=== PATIENT | female | born 1970 | race Caucasian/White ===

== ENCOUNTER 2019-11-13 07:43 | Emergency (ER) | payer BC ==
[~2019-11-13] VITALS: Ht 160 cm; Wt 79.8 kg
[~2019-11-13 07:43] MED LIST: ALPR.5T PO; AMOX1TAB12 PO; CTLP20T PO; DILT240C PO; HYDR-3583 PO; LATA2.5D5 OP; LATA2.5D5 OU; OMEP40CA36 PO; ONDA8TAB13 PO; ONDAN4ODT PO; SCOP1PAT11 TD; SCP1.5TD TD; TMZP15C PO; TRM50T PO
--- NOTE | 2019-11-13 08:08 | ED Cardiac General ---
History of Present Illness General Chief Complaint: Cardiac/General Problems Stated Complaint: ELEVATED HR Nursing Triage Note: Patient presents to the ED with c/o of high heart rate. She states that was unable to sleep last night due to feeling like her heart was racing. She reports that she has a history of SVT but hasn't had any episodes since 2011 and no longer takes medications for it. Source: patient Exam Limitations: no limitations History of Present Illness Date Seen by Provider: Nov 13, 2019 Time Seen by Provider: 08:00 Initial Comments 49-year-old female presents with concerns for high heart rate. Patient reports that she felt like her heart was racing all night long. Patient does have a previous history of SVT and this was wearing her. She reports her last symptom was in 2011 and since then she has not had any further symptoms. 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 She did have a negative heart catheter in 2014. Patient is unsure she's is having some anxiety. She reports that that the rapid heart rate seemed to be more present at night than during the day. She denies any fevers chills nausea vomiting shortness of breath cough or other systemic complaints. Allergies and Home Medications Allergies Uncoded Allergies: STEROID (Allergy, 01/30/12) Home Medications Amoxicillin/Potassium Clav 1 Each Tablet, 1 TAB PO BID, (Reported) Latanoprost 2.5 Ml Drops, 1 DROP OU DAILY, (Reported) Ondansetron 8 Mg Tab.rapdis, 8 MG PO Q6H PRN for NAUSEA Prescribed by: SUNSHINE MULTANI on 10/05/1540 Scopolamine 1 Each Patch.td72, 1 EACH TD UD PRN for NAUSEA 1 patch q72 hours prn nausea Prescribed by: SUNSHINE MULTANI on 10/05/1540 Tramadol HCl 50 Mg Tablet, 50-100 MG PO Q4H PRN for PAIN Prescribed by: SUNSHINE MULTANI on 10/05/1540 Patient Home Medication List Home Medication List Reviewed: Yes Review of Systems Review of Systems Constitutional: No chills, No dizziness, No fever, No malaise, No weakness EENTM: No Mouth Swelling Respiratory: Denies Cough, Denies SOA With Exertion, Denies SOA at Rest Cardiovascular: Denies Chest Pain, Denies Lightheadedness; Palpitations Gastrointestinal: Denies Abdominal Pain, Denies Diarrhea, Denies Nausea, Denies Vomiting Genitourinary: Denies Burning Musculoskeletal: no symptoms reported Skin: no symptoms reported Psychiatric/Neurological: Anxiety Endocrine: No Symptoms Reported Hematologic/Lymphatic: No Symptoms Reported Past Mcecufw-Ndsqvm-Waqnwq Hx Past Med/Social Hx: Reviewed Nursing Past Med/Soc Hx Patient Social History Alcohol Use: Occasionally Uses Recreational Drug Use: No Smoking Status: Never a Smoker 2nd Hand Smoke Exposure: No Recent Foreign Travel: No Contact w/Someone Who Travel: No Recent Infectious Disease Expo: No Recent Hopitalizations: No Physical Abuse: No Sexual Abuse: No Mistreated: No Fear: No Immunizations Up To Date Date of Influenza Vaccine: Dec 27, 2011 Seasonal Allergies Seasonal Allergies: No Past Medical History Surgeries: Yes (WISDOM TEETH ) Gallbladder Respiratory: No Cardiac: Yes (SVT) Hypertension Neurological: No Reproductive Disorders: No Genitourinary: No Gastrointestinal: No Musculoskeletal: No Endocrine: No HEENT: Yes Glaucoma Cancer: No Psychosocial: Yes Anxiety Integumentary: No Blood Disorders: No Adverse Reaction/Blood Tranf: No Family Medical History No Pertinent Family Hx Physical Exam Vital Signs Vital Signs - First Documented 11/13/19 08:01 Temp 37.2 Pulse 111 Resp 18 B/P (MAP) 138/90 (106) Pulse Ox 98 O2 Delivery Room Air Capillary Refill : Less Than 3 Seconds Height, Weight, BMI Height: 5'3.00" Weight: 170lbs. oz. 77.692255xv; 31.00 BMI Method:Stated General Appearance: No Apparent Distress, WD/WN Neck: Non Tender Respiratory: Chest Non Tender, Lungs Clear, Normal Breath Sounds Cardiovascular: No Edema, Normal Peripheral Pulses; No Extra Beats; Tachycardia Gastrointestinal: Non Tender, Soft Extremity: Normal Capillary Refill, Normal Inspection, Normal Range of Motion Neurologic/Psychiatric: Alert, Oriented x3, Normal Mood/Affect, department director II-XII Norm as Tested Skin: Normal Color, Warm/Dry Progress/Results/Core Measures Results/Orders Lab Results Laboratory Tests Test 11/13/19 08:00 11/13/19 08:20 Range/Units White Blood Count 9.7 4.3-11.0 10^3/uL Red Blood Count 4.68 4.35-5.85 10^6/uL Hemoglobin 13.4 11.5-16.0 G/DL Hematocrit 39 35-52 % Mean Corpuscular Volume 83 80-99 FL Mean Corpuscular Hemoglobin 29 25-34 PG Mean Corpuscular Hemoglobin Concent 35 32-36 G/DL Red Cell Distribution Width 12.4 10.0-14.5 % Platelet Count 304 130-400 10^3/uL Mean Platelet Volume 10.9 H 7.4-10.4 FL Neutrophils (%) (Auto) 60 42-75 % Lymphocytes (%) (Auto) 33 12-44 % Monocytes (%) (Auto) 6 0-12 % Eosinophils (%) (Auto) 2 0-10 % Basophils (%) (Auto) 0 0-10 % Neutrophils # (Auto) 5.8 1.8-7.8 X 10^3 Lymphocytes # (Auto) 3.2 1.0-4.0 X 10^3 Monocytes # (Auto) 0.5 0.0-1.0 X 10^3 Eosinophils # (Auto) 0.2 0.0-0.3 10^3/uL Basophils # (Auto) 0.0 0.0-0.1 10^3/uL Sodium Level 139 135-145 MMOL/L Potassium Level 3.9 3.6-5.0 MMOL/L Chloride Level 103 98-107 MMOL/L Carbon Dioxide Level 22 21-32 MMOL/L Anion Gap 14 5-14 MMOL/L Blood Urea Nitrogen 13 7-18 MG/DL Creatinine 0.74 0.60-1.30 MG/DL Estimat Glomerular Filtration Rate > 60 BUN/Creatinine Ratio 18 Glucose Level 102 70-105 MG/DL Calcium Level 9.6 8.5-10.1 MG/DL Corrected Calcium 9.2 8.5-10.1 MG/DL Magnesium Level 2.0 1.6-2.4 MG/DL Total Bilirubin 0.4 0.1-1.0 MG/DL Aspartate Amino Transf (AST/SGOT) 16 5-34 U/L Alanine Aminotransferase (ALT/SGPT) 22 0-55 U/L Alkaline Phosphatase 50 40-136 U/L Troponin I < 0.30 <0.30 NG/ML Total Protein 7.4 6.4-8.2 GM/DL Albumin 4.5 3.2-4.5 GM/DL Urine Color PALE YELLOW Urine Clarity CLEAR Urine pH 6.0 5-9 Urine Specific [place] <=1.005 1.016-1.022 Urine Protein NEGATIVE NEGATIVE Urine Glucose (UA) NEGATIVE NEGATIVE Urine Ketones 1+ H NEGATIVE Urine Nitrite NEGATIVE NEGATIVE Urine Bilirubin NEGATIVE NEGATIVE Urine Urobilinogen 0.2 < = 1.0 MG/DL Urine Leukocyte Esterase NEGATIVE NEGATIVE Urine RBC (Auto) NEGATIVE NEGATIVE Urine RBC NONE /HPF Urine WBC RARE /HPF Urine Squamous Epithelial Cells RARE /HPF Urine Crystals NONE /LPF Urine Bacteria NEGATIVE /HPF Urine Casts NONE /LPF Urine Mucus NEGATIVE /LPF Urine Culture Indicated NO My Orders Orders - GERDA BRIDGES DO Comprehensive Metabolic Panel (11/13/19 08:08) Magnesium (11/13/19 08:08) Thyroid Analyzer (11/13/19 08:08) Ua Culture If Indicated (11/13/19 08:08) Troponin I Fs (11/13/19 08:08) Chest Pa/Lat (2 View) (11/13/19 08:08) Ns Iv 1000 Ml (Sodium Chloride 0.9%) (11/13/19 08:18) Cbc With Automated Diff (11/13/19 08:58) Vital Signs/I&O 11/13/19 08:01 Temp 37.2 Pulse 111 Resp 18 B/P (MAP) 138/90 (106) Pulse Ox 98 O2 Delivery Room Air Blood Pressure Mean: 106 Progress Progress Note : Time: 09:41 Progress Note Patient's heart rate improved throughout her stay in to mid 80s. Discussed with her the need to follow-up with her primary care provider for evaluation of possible sleep apnea versus early menopause her transitional menopause or other etiology. Patient has no acute findings. She is stable and will be discharged home Initial ECG Impression Date: Nov 13, 2019 Initial ECG Impression Time: 07:53 Initial ECG Rate: 117 Initial ECG Rhythm: S.Tach Initial ECG Intervals: Normal Comment sinus tachycardia Diagnostic Imaging Diagonstic Imaging: Xray Plain Films/CT/US/NM/MRI: chest Comments NAME: ANA PELAEZ [facility] REC#: [id number] PT STATUS: REG ER : 1970 PHYSICIAN: GERDA BRIDGES DO ADMIT DATE: 11/13/19/ER FS Draft Date of Exam:11/13/19 CHEST PA/LAT (2 VIEW) EXAMINATION: Chest, PA and lateral views. INDICATION: Tachycardia. History of SVT. COMPARISON: 02/03/2012 FINDINGS: The lungs are clear and the pulmonary vasculature is normal. No pneumothorax or pleural effusion. Heart size and mediastinal contours are normal and unchanged. No acute osseous abnormality is identified. Surgical clips are demonstrated in the right upper abdominal quadrant. IMPRESSION: No radiographic evidence of acute chest disease. No significant change from prior. Reviewed: Reviewed by Me, Reviewed/Discussed Departure Impression Primary Impression: Tachycardia, paroxysmal Disposition: 01 HOME, SELF-CARE Condition: Stable Departure-Patient Inst. Referrals: NO,LOCAL PHYSICIAN (PCP/Family) Primary Care Physician Patient Instructions: Tachycardia (DC) Add. Discharge Instructions: Follow-up with your primary care provider for further evaluation and outpatient test All discharge instructions reviewed with patient and/or family. Voiced understanding. GERDA BRIDGES DO Nov 13, 2019 08:08
[2019-11-13] MEDS ORDERED: NS IV 1000 ML 1,000 ML IV STA (08:18)
--- NOTE | 2019-11-13 08:30 | Diagnostic Imaging Report ---
EXAMINATION: Chest, PA and lateral views. INDICATION: Tachycardia. History of SVT. COMPARISON: 02/03/2012 FINDINGS: The lungs are clear and the pulmonary vasculature is normal. No pneumothorax or pleural effusion. Heart size and mediastinal contours are normal and unchanged. No acute osseous abnormality is identified. Surgical clips are demonstrated in the right upper abdominal quadrant. IMPRESSION: No radiographic evidence of acute chest disease. No significant change from prior. Dictated by: Dictated on workstation # [id number]
[2019-11-13 08:39] LABS: BACTERIA,URINE NEGATIVE /HPF; BILIRUBIN,URINE NEGATIVE (NEGATIVE); CLARITY,URINE CLEAR; COLOR,URINE PALE YELLOW; GLUCOSE, URINE (UA) NEGATIVE (NEGATIVE); KETONES,URINE 1+ (NEGATIVE); LEUKOCYTE ESTERASE ,URINE NEGATIVE (NEGATIVE); NITRITE,URINE NEGATIVE (NEGATIVE); PROTEIN,URINE NEGATIVE (NEGATIVE); SQUAMOUS EPITHELIAL CELL,UR RARE /HPF; WBC,URINE RARE /HPF
[2019-11-13 08:41] LABS: ALANINE AMINOTRANSFERASE 22 U/L (0-55); ALBUMIN 4.5 GM/DL (3.2-4.5); ALKALINE PHOSPHATASE 50 U/L (40-136); BILIRUBIN,TOTAL 0.4 MG/DL (0.1-1.0); BUN/CREATININE RATIO 18; CALCIUM 9.6 MG/DL (8.5-10.1); CARBON DIOXIDE 22 MMOL/L (21-32); CHLORIDE 103 MMOL/L (98-107); CREATININE SERUM 0.74 MG/DL (0.60-1.30); GFR ESTIMATED > 60; GLUCOSE 102 MG/DL (70-105); POTASSIUM 3.9 MMOL/L (3.6-5.0); SODIUM 139 MMOL/L (135-145); TOTAL PROTEIN 7.4 GM/DL (6.4-8.2)
[2019-11-13 09:16] LABS: HEMATOCRIT 39 % (35-52); HEMOGLOBIN 13.4 G/DL (11.5-16.0); MEAN CORPUSCULAR HEMOGLOBIN 29 PG (25-34); MEAN CORPUSCULAR HGB CONC 35 G/DL (32-36); MEAN CORPUSCULAR VOLUME 83 FL (80-99); MEAN PLATELET VOLUME 10.9 FL (7.4-10.4); PLATELET COUNT 304 10^3/uL (130-400); RED CELL DISTRIBUTION WIDTH 12.4 % (10.0-14.5); WHITE BLOOD COUNT 9.7 10^3/uL (4.3-11.0)
[2019-11-13 09:17] LABS: BASOPHILS % (AUTO) 0 % (0-10); EOSINOPHILS # (AUTO) 0.2 10^3/uL (0.0-0.3); EOSINOPHILS % (AUTO) 2 % (0-10); LYMPHOCYTES # (AUTO) 3.2 X 10^3 (1.0-4.0); LYMPHOCYTES % (AUTO) 33 % (12-44); MONOCYTES # (AUTO) 0.5 X 10^3 (0.0-1.0); MONOCYTES % (AUTO) 6 % (0-12); NEUTROPHILS # (AUTO) 5.8 X 10^3 (1.8-7.8); NEUTROPHILS % (AUTO) 60 % (42-75)
[2019-11-13 09:45] VITALS: BP 133/82
[2019-11-13 15:29] LABS: TSH (THYROID ANALYZER) 2.84 UIU/ML (0.35-4.94)
== END 2019-11-13 09:45 | disposition home or self-care (01) ==
LOC: EDUNIT# 07:43 → ER FS 07:45
DX: I47.9 Paroxysmal tachycardia, unspecified (principal); Z88.8 Allergy status to other drugs, medicaments and biological substances
CPT/HCPCS: 36415; 71046; 80053; 81000; 83735; 84443; 84484; 85025; 93005

== ENCOUNTER → 2020-05-16 | Outpatient (CLI) | payer SELFPAY ==
--- NOTE | 2020-05-16 16:03 | Diagnostic Imaging Report ---
INDICATION: Family history of cardiac disease. History of SVT. EXAMINATION: Noncontrasted limited chest CT performed for the purpose of calcium scoring. All CT scans use one or more of the following dose optimizing techniques: automated exposure control, MA and/or KvP adjustment based on patient size and exam type or iterative reconstruction. FINDINGS: No radiopaque atherosclerotic disease involving the left main. The LAD or circumflex is seen. Some vague hyperdensity along the expected course of the right coronary artery. Some of this is not believed artifactual with the measured score of 71. Total score of 71. The aorta is nonaneurysmal and shows no detectable calcification. The visualized lungs clear. No mass or thoracic adenopathy. No demonstrated effusion or pneumothorax. No appreciable chest wall lesion. IMPRESSION: No aortic or left-sided coronary arterial calcified plaque. There is some measured hyperdensity near the right coronary artery with a score of 71; however, this is believed to be exaggerated and a significant degree of calcified plaque is not felt present at this exam. Dictated by: Dictated on workstation # [id number]
== END ==
LOC: RAD FS 13:55
PROVIDERS: ATTEND Nurse Practitioner Family
DX: E78.2 Mixed hyperlipidemia (principal); Z82.49 Family history of ischemic heart disease and other diseases of the circulatory system; Z86.79 Personal history of other diseases of the circulatory system
CPT/HCPCS: 75571

== ENCOUNTER 2022-04-23 13:33 | Emergency (ER) | payer BC, OTHER ==
[~2022-04-23] VITALS: Ht 160 cm; Wt 78.0 kg
[~2022-04-23 13:33] MED LIST changes: +SCOP1PAT10 TD; -SCOP1PAT11 TD
--- NOTE | 2022-04-23 13:43 | ED Cardiac General ---
History of Present Illness General Chief Complaint: Cardiac/General Problems Stated Complaint: ARRHYTHMIA History of Present Illness Date Seen by Provider: Apr 23, 2022 Time Seen by Provider: 13:41 Initial Comments 51-year-old female presents with what she describes as palpitations or maybe having like a skipped beat or abnormal beat. She reports has been going on and off for a couple days but seemed like it was little bit worse today. Patient reports that she has had a history of SVT but has not had any issues with it in a while. She did call her aco coordinator and they are sending her a Holter monitor to wear for the next 2 weeks. She does not have any chest pain, shortness of breath fevers chills nausea or vomiting. She does report that she is perimenopausal and is not sure if that is part of what is going on. No reports of fevers chills or any other systemic complaints. Allergies and Home Medications Allergies Uncoded Allergies: STEROID (Allergy, 01/30/12) Patient Home Medication List Home Medication List Reviewed: Yes Amoxicillin/Potassium Clav (Amox Tr-K Clv 875-125 mg Tab) 1 Each Tablet, 1 TAB PO BID, (Reported) Entered as Reported by: CRUZITO REID on 10/04/152227 Latanoprost (Latanoprost) 2.5 Ml Drops, 1 DROP OU DAILY, (Reported) Entered as Reported by: CRUZITO REID on 10/04/152227 Ondansetron (Ondansetron Odt) 8 Mg Tab.rapdis, 8 MG PO Q6H PRN for NAUSEA Prescribed by: SUNSHINE MULTANI on 10/05/1540 Scopolamine (Transderm-Scop) 1 Each Patch.td72, 1 EACH TD UD PRN for NAUSEA Prescribed by: SUNSHINE MULTANI on 10/05/1540 Tramadol HCl (Tramadol HCl) 50 Mg Tablet, 50-100 MG PO Q4H PRN for PAIN Prescribed by: SUNSHINE MULTANI on 10/05/1540 Review of Systems Review of Systems Constitutional: No chills, No fever EENTM: No Symptoms Reported Respiratory: No Symptoms Reported Cardiovascular: Denies Chest Pain, Denies Lightheadedness; Palpitations Gastrointestinal: No Symptoms Reported Genitourinary: No Symptoms Reported Musculoskeletal: no symptoms reported Skin: no symptoms reported Psychiatric/Neurological: No Symptoms Reported Endocrine: No Symptoms Reported Past Yizmwjm-Szaymk-Qiatku Hx Seasonal Allergies Seasonal Allergies: No Past Medical History Surgeries: Yes (WISDOM TEETH ) Gallbladder Respiratory: No Cardiac: Yes (SVT) Hypertension Neurological: No Reproductive Disorders: No Genitourinary: No Gastrointestinal: No Musculoskeletal: No Endocrine: No HEENT: Yes Glaucoma Cancer: No Psychosocial: Yes Anxiety Integumentary: No Blood Disorders: No Adverse Reaction/Blood Tranf: No Family Medical History No Pertinent Family Hx Physical Exam Vital Signs Vital Signs - First Documented 04/23/22 14:04 Temp 36.5 Pulse 82 Resp 18 B/P (MAP) 138/102 (114) Pulse Ox 100 O2 Delivery Room Air Capillary Refill : Height, Weight, BMI Height: 5'3.00" Weight: 170lbs. oz. 77.819283ak; 31.00 BMI Method:Stated General Appearance: No Apparent Distress, WD/WN HEENT: Normal ENT Inspection, Pharynx Normal, Moist Mucous Membranes Respiratory: Chest Non Tender, Lungs Clear Cardiovascular: Regular Rate, Rhythm, No Edema, Normal Peripheral Pulses Gastrointestinal: Non Tender, Soft Extremity: Normal Capillary Refill, Normal Inspection, Normal Range of Motion Neurologic/Psychiatric: Alert, Oriented x3, No Motor/Sensory Deficits, Normal Mood/Affect Skin: Normal Color, Warm/Dry Progress/Results/Core Measures Results/Orders Lab Results Laboratory Tests Test 04/23/22 13:50 Range/Units White Blood Count 7.9 4.3-11.0 10^3/uL Red Blood Count 4.62 3.80-5.11 10^6/uL Hemoglobin 13.1 11.5-16.0 g/dL Hematocrit 38 35-52 % Mean Corpuscular Volume 82 80-99 fL Mean Corpuscular Hemoglobin 28 25-34 pg Mean Corpuscular Hemoglobin Concent 35 32-36 g/dL Red Cell Distribution Width 12.5 10.0-14.5 % Platelet Count 303 130-400 10^3/uL Mean Platelet Volume 10.2 9.0-12.2 fL Immature Granulocyte % (Auto) 0 % Neutrophils (%) (Auto) 67 42-75 % Lymphocytes (%) (Auto) 26 12-44 % Monocytes (%) (Auto) 6 0-12 % Eosinophils (%) (Auto) 2 0-10 % Basophils (%) (Auto) 1 0-10 % Neutrophils # (Auto) 5.2 1.8-7.8 10^3/uL Lymphocytes # (Auto) 2.0 1.0-4.0 10^3/uL Monocytes # (Auto) 0.4 0.0-1.0 10^3/uL Eosinophils # (Auto) 0.1 0.0-0.3 10^3/uL Basophils # (Auto) 0.0 0.0-0.1 10^3/uL Immature Granulocyte # (Auto) 0.0 0.0-0.1 10^3/uL Sodium Level 139 135-145 MMOL/L Potassium Level 4.1 3.6-5.0 MMOL/L Chloride Level 105 98-107 MMOL/L Carbon Dioxide Level 24 21-32 MMOL/L Anion Gap 10 5-14 MMOL/L Blood Urea Nitrogen 8 7-18 MG/DL Creatinine 0.66 0.60-1.30 MG/DL Estimat Glomerular Filtration Rate 107 BUN/Creatinine Ratio 12 Glucose Level 132 H 70-105 MG/DL Calcium Level 9.9 8.5-10.1 MG/DL Corrected Calcium 8.5-10.1 MG/DL Magnesium Level 1.8 1.6-2.4 MG/DL Total Bilirubin 0.4 0.1-1.0 MG/DL Aspartate Amino Transf (AST/SGOT) 16 5-34 U/L Alanine Aminotransferase (ALT/SGPT) 22 0-55 U/L Alkaline Phosphatase 57 40-136 U/L Troponin I < 0.30 <0.30 NG/ML Total Protein 7.6 6.4-8.2 GM/DL Albumin 4.6 H 3.2-4.5 GM/DL My Orders Orders - BRIDGES,GERDA L DO Cbc With Automated Diff (04/23/22 13:39) Comprehensive Metabolic Panel (04/23/22 13:39) Magnesium (04/23/22 13:39) Troponin I Fs (04/23/22 13:39) Ekg Tracing (04/23/22 13:39) Monitor-Rhythm Ecg Trace Only (04/23/22 13:39) Chest Pa/Lat (2 View) (04/23/22 13:43) Vital Signs/I&O 04/23/22 14:04 Temp 36.5 Pulse 82 Resp 18 B/P (MAP) 138/102 (114) Pulse Ox 100 O2 Delivery Room Air Progress Progress Note : Progress Note Patient's EKG and manager monitoring do not show any abnormal beats or irregular rhythm. Patient with negative labs. Discussed with patient that she should follow-up with her aco coordinator and wear her Holter monitor. Patient's negative chest x-ray. She is stable and discharged home Initial ECG Impression Date: Apr 23, 2022 Initial ECG Impression Time: 13:49 Initial ECG Rate: 85 Initial ECG Rhythm: Normal Sinus Initial ECG Intervals: Normal Initial ECG Impression: Normal Comment normal ekg Diagnostic Imaging Diagonstic Imaging: Xray Plain Films/CT/US/NM/MRI: chest Comments Date of Exam:04/23/22 CHEST PA/LAT (2 VIEW) INDICATION: Palpitations. COMPARISON: 11/13/2019. FINDINGS: Lungs are clear. No failure, effusion, or pneumothorax. IMPRESSION: No acute appearing abnormality. Reviewed: Reviewed by Me, Reviewed/Discussed Departure Impression Primary Impression: Palpitations Disposition: HOME, SELF-CARE Condition: Stable Departure-Patient Inst. Referrals: BLAISE JUDD APRN (PCP) Primary Care Physician [facility]/JARRELL (Family) Primary Care Physician Patient Instructions: Palpitations (DC) Add. Discharge Instructions: Please follow-up with your aco coordinator and primary care provider as needed All discharge instructions reviewed with patient and/or family. Voiced understanding. GERDA BRIDGES DO Apr 23, 2022 13:43
[2022-04-23 13:59] LABS: BASOPHILS % (AUTO) 1 % (0-10); EOSINOPHILS # (AUTO) 0.1 10^3/uL (0.0-0.3); EOSINOPHILS % (AUTO) 2 % (0-10); HEMATOCRIT 38 % (35-52); HEMOGLOBIN 13.1 g/dL (11.5-16.0); LYMPHOCYTES % (AUTO) 26 % (12-44); MEAN CORPUSCULAR HEMOGLOBIN 28 pg (25-34); MEAN CORPUSCULAR HGB CONC 35 g/dL (32-36); MEAN CORPUSCULAR VOLUME 82 fL (80-99); MEAN PLATELET VOLUME 10.2 fL (9.0-12.2); MONOCYTES # (AUTO) 0.4 10^3/uL (0.0-1.0); MONOCYTES % (AUTO) 6 % (0-12); NEUTROPHILS # (AUTO) 5.2 10^3/uL (1.8-7.8); NEUTROPHILS % (AUTO) 67 % (42-75); PLATELET COUNT 303 10^3/uL (130-400); WHITE BLOOD COUNT 7.9 10^3/uL (4.3-11.0)
--- NOTE | 2022-04-23 14:06 | Diagnostic Imaging Report ---
INDICATION: Palpitations. COMPARISON: 11/13/2019. FINDINGS: Lungs are clear. No failure, effusion, or pneumothorax. IMPRESSION: No acute appearing abnormality. Dictated by: Dictated on workstation # [id number]
[2022-04-23 14:20] LABS: POTASSIUM 4.1 MMOL/L (3.6-5.0); SODIUM 139 MMOL/L (135-145)
[2022-04-23 14:21] LABS: ALANINE AMINOTRANSFERASE 22 U/L (0-55); ALBUMIN 4.6 GM/DL (3.2-4.5); ALKALINE PHOSPHATASE 57 U/L (40-136); BILIRUBIN,TOTAL 0.4 MG/DL (0.1-1.0); BUN/CREATININE RATIO 12; CALCIUM 9.9 MG/DL (8.5-10.1); CARBON DIOXIDE 24 MMOL/L (21-32); CHLORIDE 105 MMOL/L (98-107); CREATININE SERUM 0.66 MG/DL (0.60-1.30); GFR ESTIMATED 107; GLUCOSE 132 MG/DL (70-105); MAGNESIUM 1.8 MG/DL (1.6-2.4); TOTAL PROTEIN 7.6 GM/DL (6.4-8.2)
[2022-04-23 14:31] VITALS: BP 133/83
== END 2022-04-23 14:33 | disposition home or self-care (01) ==
LOC: EDUNIT# 13:33 → ER FS 13:35
DX: R00.2 Palpitations (principal)
CPT/HCPCS: 36415; 71046; 80053; 83735; 84484; 85025; 93005; 93041

== ENCOUNTER 2022-07-31 13:12 | Emergency (ER) | payer BC ==
[~2022-07-31] VITALS: Ht 160 cm; Wt 82.1 kg
--- NOTE | 2022-07-31 13:35 | ED GU-Female ---
General Chief Complaint: - Reproductive Stated Complaint: VAGINAL BLEEDING; DIZZINESS Nursing Triage Note: Patient c/o heavy bleeding that started yesterday with going through a pad an hr with passing clots. Patient c/o cramping and dizziness with her symptoms. Patient states she started her period on July 16 and had a normal period and then spotted x 1 wk. Patient states she has had 3 diarrhea stools today. Patient states she started taking Estrovera interm. 1 mth ago after seeing her Gyno. Source: patient Exam Limitations: no limitations History of Present Illness Date Seen by Provider: July 31, 2022 Time Seen by Provider: 13:15 Initial Comments 51-year-old female with past medical history of hypertension that is perimenopausal coming in due to vaginal bleeding. She had a regular period there is maybe slightly heavier in April, no period in May, and then had a period start July 16 that was regular, followed by 1 week of spotting, followed by now larger amount of bleeding. She states for about 3 hours today she was going through more than 1 supermax pad that was fully saturated, but it seems to have slowed down over the past hour. Denies any fever, abdominal pain, nausea, vomiting, weakness, numbness, dysuria, vaginal discharge that is unusual, rash, or any other concerns. Does not really take any medicines daily other than as needed lisinopril for high blood pressure. She is on a supplement, Estrovera, for hot flashes that was recommended by her hydrology technician. She takes this intermittently but has taken it essentially once in the past week. She denies ever having history of blood clots in her legs or lungs, no prior history of bleeding disorder, did not have heavy periods mostly through her life, and does not take any hormones. She is otherwise denying any other acute complaints. Allergies and Home Medications Allergies Uncoded Allergies: STEROID (Allergy, 01/30/12) Patient Home Medication List Home Medication List Reviewed: Yes Amoxicillin/Potassium Clav (Amox Tr-K Clv 875-125 mg Tab) 1 Each Tablet, 1 TAB PO BID, (Reported) Entered as Reported by: CRUZITO REID on 10/04/152227 Latanoprost (Latanoprost) 2.5 Ml Drops, 1 DROP OU DAILY, (Reported) Entered as Reported by: CRUZITO REID on 10/04/152227 Ondansetron (Ondansetron Odt) 8 Mg Tab.rapdis, 8 MG PO Q6H PRN for NAUSEA Prescribed by: SUNSHINE MULTANI on 10/05/1540 Scopolamine (Transderm-Scop) 1 Each Patch.td72, 1 EACH TD UD PRN for NAUSEA Prescribed by: SUNSHINE MULTANI on 10/05/1540 Tramadol HCl (Tramadol HCl) 50 Mg Tablet, 50-100 MG PO Q4H PRN for PAIN Prescribed by: SUNSHINE MULTANI on 10/05/1540 Review of Systems Review of Systems Constitutional: No fever EENTM: no symptoms reported Respiratory: no symptoms reported Cardiovascular: No chest pain; other (Lightheaded at times) Gastrointestinal: No abdominal pain Genitourinary: other (Vaginal bleeding) Musculoskeletal: no symptoms reported Skin: no symptoms reported Psychiatric/Neurological: No Symptoms Reported Endocrine: No Symptoms Reported Past Xmzopfz-Yhjbwz-Poigwt Hx Patient Social History Tobacco Use?: No Seasonal Allergies Seasonal Allergies: No Past Medical History Surgeries: Yes (WISDOM TEETH ) Gallbladder Respiratory: No Cardiac: Yes (SVT) Hypertension Neurological: No Last Menstrual Period: Jul 16, 2022 Reproductive Disorders: No Genitourinary: No Gastrointestinal: No Musculoskeletal: No Endocrine: No HEENT: Yes Glaucoma Cancer: No Psychosocial: Yes Anxiety Integumentary: No Blood Disorders: No Adverse Reaction/Blood Tranf: No Family Medical History No Pertinent Family Hx Physical Exam Vital Signs Vital Signs - First Documented 07/31/22 13:14 Temp 36.6 Pulse 110 Resp 12 B/P (MAP) 163/93 (116) Pulse Ox 99 O2 Delivery Room Air Capillary Refill : Height, Weight, BMI Height: 5'3.00" Weight: 170lbs. oz. 77.423564il; 32.00 BMI Method:Stated General Appearance: WD/WN, no apparent distress HEENT: PERRL/EOMI, normal ENT inspection, pharynx normal Neck: non-tender, full range of motion, supple, normal inspection Cardiovascular: regular rate, rhythm, no edema, no murmur Respiratory: chest non-tender, lungs clear, normal breath sounds, no respiratory distress, no accessory muscle use Gastrointestinal: normal bowel sounds, non tender, soft; No distended, No guarding, No rebound Back: normal inspection, no CVA tenderness Extremities: normal range of motion, non-tender, normal inspection, no pedal edema, no calf tenderness, normal capillary refill Neurologic/Psychiatric: no motor/sensory deficits, alert, normal mood/affect Skin: normal color, warm/dry Progress/Results/Core Measures Suspected Sepsis SIRS Temperature: Pulse: 110 Respiratory Rate: 12 Laboratory Tests 07/31/22 13:40: White Blood Count 8.0 Blood Pressure 163 /93 Mean: 116 Laboratory Tests 07/31/22 13:40: Creatinine 0.84, INR Comment 0.9, Platelet Count 278 Results/Orders Lab Results Laboratory Tests Test 07/31/22 13:40 Range/Units White Blood Count 8.0 4.3-11.0 10^3/uL Red Blood Count 4.51 3.80-5.11 10^6/uL Hemoglobin 12.7 11.5-16.0 g/dL Hematocrit 38 35-52 % Mean Corpuscular Volume 83 80-99 fL Mean Corpuscular Hemoglobin 28 25-34 pg Mean Corpuscular Hemoglobin Concent 34 32-36 g/dL Red Cell Distribution Width 12.6 10.0-14.5 % Platelet Count 278 130-400 10^3/uL Mean Platelet Volume 10.3 9.0-12.2 fL Immature Granulocyte % (Auto) 0 % Neutrophils (%) (Auto) 60 42-75 % Lymphocytes (%) (Auto) 32 12-44 % Monocytes (%) (Auto) 6 0-12 % Eosinophils (%) (Auto) 2 0-10 % Basophils (%) (Auto) 1 0-10 % Neutrophils # (Auto) 4.8 1.8-7.8 10^3/uL Lymphocytes # (Auto) 2.6 1.0-4.0 10^3/uL Monocytes # (Auto) 0.5 0.0-1.0 10^3/uL Eosinophils # (Auto) 0.2 0.0-0.3 10^3/uL Basophils # (Auto) 0.1 0.0-0.1 10^3/uL Immature Granulocyte # (Auto) 0.0 0.0-0.1 10^3/uL Prothrombin Time 12.2 12.2-14.7 SEC INR Comment 0.9 0.8-1.4 Activated Partial Thromboplast Time 25 24-35 SEC Sodium Level 140 135-145 MMOL/L Potassium Level 3.6 3.6-5.0 MMOL/L Chloride Level 105 98-107 MMOL/L Carbon Dioxide Level 24 21-32 MMOL/L Anion Gap 11 5-14 MMOL/L Blood Urea Nitrogen 12 7-18 MG/DL Creatinine 0.84 0.60-1.30 MG/DL Estimat Glomerular Filtration Rate 85 BUN/Creatinine Ratio 14 Glucose Level 140 H 70-105 MG/DL Calcium Level 9.5 8.5-10.1 MG/DL My Orders Orders - SANNA PAVON MD Basic Metabolic Panel (07/31/22 13:30) Cbc With Automated Diff (07/31/22 13:30) Protime With Inr (07/31/22 13:30) Partial Thromboplastin Time (07/31/22 13:30) Ed Iv/Invasive Line Start (07/31/22 13:30) Urine Bedside (07/31/22 13:30) Vital Signs/I&O 07/31/22 13:14 Temp 36.6 Pulse 110 Resp 12 B/P (MAP) 163/93 (116) Pulse Ox 99 O2 Delivery Room Air Capillary Refill : Blood Pressure Mean: 116 Progress Note : Progress Note 51-year-old female with above history coming in due to vaginal bleeding. ABCs were intact and vitals were stable on presentation although she is mildly hypertensive. Physical exam reassuring including a soft and nontender abdomen. Her vaginal bleeding slowed down while in the ER, and it was greater than 2 hours since her last tampon change, and it was not completely saturated, and she is no longer passing clots. An IV was placed and basic labs were obtained and were significant for normal hemoglobin, normal platelet count, normal BUN/creatinine, and negative test. I contacted the patient's hydrology technician, Dr. Bond, at [facility] at [phone]. I left a detailed message for them to call back. If they call back with any particular recommendations, I will call the patient back at her cell phone number at [phone] to let her know. At this point, given the bleeding has slowed down and she is not anemic, not hypotensive, not symptomatic, I think it is appropriate for outpatient follow-up. I did recommend an iron supplement in the meantime if she continues to have heavy bleeding until then. I discussed potentially starting essentially control, but I did not want to do this unless there was a hydrology technician recommendation given the patient's age. I believe she is otherwise stable for discharge with outpatient follow-up. She was sent home with strict return precautions Departure Impression Primary Impression: Vaginal bleeding Additional Impression: Janice-menopausal Disposition: HOME, SELF-CARE Condition: Stable Departure-Patient Inst. Decision time for Depature: 14:25 Referrals: BLAISE JUDD APRN (PCP) Primary Care Physician [facility] (Family) Primary Care Physician Patient Instructions: Heavy Periods ED Add. Discharge Instructions: If you continue to have significant vaginal bleeding that leaves you feeling lightheaded like you are going to pass out, we would want you to call your hydrology technician or be seen in the ER, particularly if your blood pressure is less than 100 systolic. We will call you on your cell phone if Dr. Bnod calls back with any particular recommendations. We would recommend taking an [id number]-[id number] iron supplement while you are having heavy bleeding to help your body replenish the blood cells Work/School Note: Work Release Form Date Seen in the Emergency Department: July 31, 2022 Return to Work: August 01, 2022 Restrictions: No Restrictions SANNA PAVON MD July 31, 2022 13:35
[2022-07-31 13:46] LABS: BASOPHILS # (AUTO) 0.1 10^3/uL (0.0-0.1); BASOPHILS % (AUTO) 1 % (0-10); EOSINOPHILS # (AUTO) 0.2 10^3/uL (0.0-0.3); EOSINOPHILS % (AUTO) 2 % (0-10); HEMATOCRIT 38 % (35-52); HEMOGLOBIN 12.7 g/dL (11.5-16.0); LYMPHOCYTES # (AUTO) 2.6 10^3/uL (1.0-4.0); LYMPHOCYTES % (AUTO) 32 % (12-44); MEAN CORPUSCULAR HEMOGLOBIN 28 pg (25-34); MEAN CORPUSCULAR HGB CONC 34 g/dL (32-36); MEAN CORPUSCULAR VOLUME 83 fL (80-99); MEAN PLATELET VOLUME 10.3 fL (9.0-12.2); MONOCYTES # (AUTO) 0.5 10^3/uL (0.0-1.0); MONOCYTES % (AUTO) 6 % (0-12); NEUTROPHILS # (AUTO) 4.8 10^3/uL (1.8-7.8); NEUTROPHILS % (AUTO) 60 % (42-75); PLATELET COUNT 278 10^3/uL (130-400)
[2022-07-31 14:02] LABS: INR 0.9 (0.8-1.4); PROTHROMBIN TIME PATIENT 12.2 SEC (12.2-14.7)
[2022-07-31 14:10] LABS: CALCIUM 9.5 MG/DL (8.5-10.1); CREATININE SERUM 0.84 MG/DL (0.60-1.30); POTASSIUM 3.6 MMOL/L (3.6-5.0)
[2022-07-31 14:37] VITALS: BP 141/85
== END 2022-07-31 14:37 | disposition home or self-care (01) ==
LOC: EDUNIT# 13:12 → ER FS 13:13
DX: N92.4 Excessive bleeding in the premenopausal period (principal); I10 Essential (primary) hypertension; Z79.899 Other long term (current) drug therapy; Z79.810 Long term (current) use of selective estrogen receptor modulators (SERMs)
CPT/HCPCS: 36415; 80048; 84703; 85025; 85610; 85730